=== PATIENT | male | born 1985 | race Caucasian/White ===

== ENCOUNTER 2016-09-11 11:51 | Emergency (ER) ==
[2016-09-11] MEDS ORDERED: DECADRON IM ONE (12:19)
[2016-09-11] MEDS ORDERED: TORADOL IM ONE (12:19)
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
--- NOTE | 2016-09-11 12:50 | Diag Imaging Result Document ---
PROCEDURE NAME: CHEST-2 VIEWS - 09/11/2016 FRONTAL AND LATERAL CHEST, THREE VIEWS: COMPARISON: No comparison films. FINDINGS: The lungs are well expanded. There are no contusions or pneumothoraces. The mediastinum is not widened. No pleural effusions. No compressed thoracic vertebra. IMPRESSION: No injury.
--- NOTE | 2016-09-11 12:51 | Diag Imaging Result Document ---
PROCEDURE NAME: WRIST COMPLETE RIGHT - 09/11/2016 RIGHT WRIST, THREE VIEWS: FINDINGS: No fracture. No dislocation. IMPRESSION: No acute bony injury.
--- NOTE | 2016-09-11 12:52 | Diag Imaging Result Document ---
PROCEDURE NAME: LUMBAR SPINE - 09/11/2016 LUMBAR SPINE AP AND LATERAL WITH OBLIQUES, SIX VIEWS: FINDINGS: No compressed vertebra. No subluxation. No other fracture. IMPRESSION: No acute bony injury.
[2016-09-11 12:56] VITALS: BP 144/88
--- NOTE | 2016-09-11 13:08 | Diag Imaging Result Document ---
PROCEDURE NAME: WRIST COMPLETE LEFT - 09/11/2016 X-RAY LEFT WRIST 3 VIEWS, 09/11/2016: COMPARISON: None. FINDINGS: Bones are intact and normally aligned. Joint spaces and soft tissues are clear. IMPRESSION: Negative exam.
== END 2016-09-11 13:03 | disposition home or self-care (01) ==
LOC: P.ED 11:51
DX: M54.5 Low back pain (principal); M25.532 Pain in left wrist; M25.531 Pain in right wrist; R07.89 Other chest pain; R07.1 Chest pain on breathing; M79.1 Myalgia; M19.90 Unspecified osteoarthritis, unspecified site; V49.40XA Driver injured in collision with unspecified motor vehicles in traffic accident, initial encounter
CPT/HCPCS: 71020; 72110; 96372; J1100; J1885